=== PATIENT | male | born 1990 | race American Indian/Alaskan Native ===

== ENCOUNTER 2017-05-28 01:17 | Emergency (ER) | payer SELFPAY ==
[2017-05-28 01:47] VITALS: BP 119/69; PULSE 84; RESP 16; TEMP 98.6; O2SAT 99
[2017-05-28] MEDS ORDERED: cefTRIAXone (Rocephin) 250 mg Inj IM ONE (01:57)
--- NOTE | 2017-05-28 02:01 | ED PDOC ---
HPI: CCC, URI, Sore Throat Time Seen by Provider: 05/28/17 01:45 Chief Complaint (Nursing): Cough, Cold, Congestion Chief Complaint (Provider): cough History Per: Patient History/Exam Limitations: no limitations Onset/Duration Of Symptoms: Days (3) Current Symptoms Are (Timing): Still Present Additional History Per: Patient Additional Complaint(s): 27 y/o male presents with cold-symptoms x 3 days. Patient notes nasal congestion, sneezing, and cough. Denies fever, ear pain, nausea/vomiting, bodyaches, chest pain, shortness of breath, palpitations, changes in bowel movements, recent travel, sick contacts. Patient also notes penile discharge yesterday after having unprotected sex and is concerned for possible STD. Denies testicular pain/swelling, penile lesions. Past Medical History Reviewed: Historical Data, Nursing Documentation, Vital Signs Vital Signs: Last Vital Signs Temp 98.6 F 05/28/17 01:44 Pulse 84 05/28/17 01:44 Resp 16 05/28/17 01:44 BP 119/69 05/28/17 01:44 Pulse Ox 99 05/28/17 01:44 - Medical History PMH: No Chronic Diseases Denies: Chronic Kidney Disease - Family History Family History: States: Unknown Family Hx - Home Medications Home Medications: Ambulatory Orders Medication Instructions Recorded Fluticasone Nasal [Flonase] 1 actuation NS BID #1 bottle 05/28/17 Promethazine DM [Phenergan DM 5 ml PO Q6 PRN #200 ml 05/28/17 Syrup] - Allergies Allergies/Adverse Reactions: Allergies Allergy/AdvReac Type Severity Reaction Status Date / Time No Known Allergies Allergy Verified 03/25/16 23:56 Review of Systems ROS Statement: Except As Marked, All Systems Reviewed And Found Negative ENT: Positive for: Nose Congestion Respiratory: Positive for: Cough Genitourinary Male: Positive for: Penile Discharge Physical Exam - Reviewed Nursing Documentation Reviewed: Yes Vital Signs Reviewed: Yes - Physical Exam Appears: Positive for: Well, Non-toxic, No Acute Distress Head Exam: Positive for: ATRAUMATIC, NORMAL INSPECTION, NORMOCEPHALIC Skin: Positive for: Normal Color ENT: Positive for: Nasal Congestion Cardiovascular/Chest: Positive for: Regular Rate, Rhythm Respiratory: Positive for: Normal Breath Sounds Gastrointestinal/Abdominal: Positive for: Normal Exam Male Genital Exam: Positive for: normal genitalia, 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 Negative for: scrotum tenderness (R), scrotum tenderness (L), testicular tenderness (R), testicular tenderness (L), urethral discharge Extremity: Positive for: Normal ROM Neurologic/Psych: Positive for: Alert, Oriented - ECG O2 Sat by Pulse Oximetry: 99 - Progress ED Course And Treament: gc/chlamydia Patient would like to be treated prophylactically for STDs due to history of Chlamydia in past. Rocephin IM, Zithromax PO ordered. Patient advised if + all current partners will need to be treated. Rx flonase, promethazine DM provided. Follow up PMD 2-3 days. Return to ED for worsening/concerning symptoms. Disposition - Clinical Impression Clinical Impression: URI (upper respiratory infection), Concern about STD in male without diagnosis - Patient ED Disposition Is Patient to be Admitted: No Counseled Patient/Family Regarding: Studies Performed, Diagnosis, Need For Followup, Rx Given - Disposition Disposition: Routine/Home Disposition Time: 02:11 Condition: IMPROVED Prescriptions: Fluticasone Nasal [Flonase] 1 actuation NS BID #1 bottle Promethazine DM [Phenergan DM Syrup] 5 ml PO Q6 PRN #200 ml PRN Reason: Cough Instructions: Sexually Transmitted Diseases (ED), Safe Sex (ED), Upper Respiratory Infection (ED)
[2017-05-28] MEDS ORDERED: Sterile Water 10 ML IV ONE (02:03)
== END 2017-05-28 03:00 | disposition home or self-care (01) ==
LOC: H.ER 01:17
DX: J06.9 Acute upper respiratory infection, unspecified (principal)
CPT/HCPCS: 96372; 99281; J0696

== ENCOUNTER 2017-09-03 09:01 | Emergency (ER) | payer OTHER ==
[2017-09-03 09:19] VITALS: BMI 27.4
[2017-09-03 09:28] VITALS: TEMP 97
[2017-09-03] MEDS ORDERED: cefTRIAXone (Rocephin) 250 mg Inj IM ONE (09:53)
--- NOTE | 2017-09-03 09:53 | ED PDOC ---
HPI: Abdomen Time Seen by Provider: 09/03/17 09:51 Chief Complaint (Nursing): Abdominal Pain Chief Complaint (Provider): STD EXPOSURE/TESTICULAR PAIN History Per: Patient (27 Y/O MALE HERE FOR EVALUATION/TREATMENT OF STD. STATES HE FOUND OUT INTERMITTENT SEXUAL PARTNER WAS DIAGNOSED WITH CHLAMYDIA. NOTES TESTICULAR PAIN/ABDOMINAL PAIN YESTERDAY. DENIES ANY DYSURIA.) Past Medical History Reviewed: Historical Data, Nursing Documentation, Vital Signs Vital Signs: Last Vital Signs Temp 97 F L 09/03/17 09:22 Pulse 69 09/03/17 09:22 Resp 19 09/03/17 09:22 BP 142/80 09/03/17 09:22 Pulse Ox 99 09/03/17 09:53 - Medical History PMH: Denies: Chronic Kidney Disease - Family History Family History: States: Unknown Family Hx - Home Medications Home Medications: Ambulatory Orders Medication Instructions Recorded Fluticasone Nasal [Flonase] 1 actuation NS BID #1 bottle 05/28/17 Promethazine DM [Phenergan DM 5 ml PO Q6 PRN #200 ml 05/28/17 Syrup] Ibuprofen [Motrin] 600 mg PO Q8 PRN #15 tab 09/03/17 - Allergies Allergies/Adverse Reactions: Allergies Allergy/AdvReac Type Severity Reaction Status Date / Time No Known Allergies Allergy Verified 03/25/16 23:56 Review of Systems ROS Statement: Except As Marked, All Systems Reviewed And Found Negative Physical Exam - Reviewed Nursing Documentation Reviewed: Yes Vital Signs Reviewed: Yes - Physical Exam Appears: Positive for: Well, Non-toxic, No Acute Distress Head Exam: Positive for: ATRAUMATIC, NORMAL INSPECTION, NORMOCEPHALIC Skin: Positive for: Normal Color, Warm, DRY Eye Exam: Positive for: EOMI, Normal appearance, PERRL ENT: Positive for: Normal ENT Inspection Neck: Positive for: Normal, Painless ROM Cardiovascular/Chest: Positive for: Regular Rate, Rhythm Respiratory: Positive for: CNT, Normal Breath Sounds Gastrointestinal/Abdominal: Positive for: Normal Exam, Bowel Sounds, Soft Male Genital Exam: Positive for: normal genitalia. Negative for: scrotum tenderness (R), scrotum tenderness (L), urethral discharge Back: Positive for: Normal Inspection Extremity: Positive for: Normal ROM Neurologic/Psych: Positive for: Alert, Oriented - ECG O2 Sat by Pulse Oximetry: 99 - Progress ED Course And Treament: ROCEPHIN 250 MG IM ZITHROMAX 1 GM PO SCROTAL US: IMPRESSION: No evidence of testicular torsion. Left-sided varicocele. Small bilateral hydroceles. Disposition - Clinical Impression Clinical Impression: Varicocele, Hydrocele, Exposure to STD - Patient ED Disposition Is Patient to be Admitted: No - Disposition Referrals: Ronal Nava MD [Medical Doctor] - [facility] [Outside] Disposition: Routine/Home Disposition Time: 11:42 Condition: FAIR Additional Instructions: F/U WITH CLINIC FOR ADDITIONAL STD TESTING (HIV/SYPHILIS/ETC) AND F/U OF TESTING IN ED. Prescriptions: Ibuprofen [Motrin] 600 mg PO Q8 PRN #15 tab PRN Reason: Pain, Moderate (4-7) Instructions: Varicocele, Hydrocele, Hydrocele/Varicocele (DC), Screening for Sexually Transmitted Infections Forms: [facility] (Sinhala)
[2017-09-03 10:33] LABS: SQUAMOUS EPITHIAL < 1 /hpf (0-5); URINE BILIRUBIN NEGATIVE (NEGATIVE); URINE BLOOD NEGATIVE (NEGATIVE); URINE CLARITY CLOUDY (Clear); URINE COLOR YELLOW (YELLOW); URINE GLUCOSE (UA) NEG (Normal); URINE LEUKOCYTE ESTERASE NEG Leu/uL (Negative); URINE NITRATE NEGATIVE (NEGATIVE); URINE PROTEIN NEGATIVE (NEGATIVE); URINE UROBILINOGEN 0.2-1.0 mg/dL (0.2-1.0)
--- NOTE | 2017-09-03 11:35 | US ---
HISTORY: INTERMITTENT TESTICULAR PAIN TECHNIQUE: Realtime sonography through the scrotum with color and doppler flow. COMPARISON: None Available. FINDINGS: RIGHT TESTICLE: Measures 5.0 x 3.3 x 2.5 cm. Normal echotexture and flow. RIGHT EPIDIDYMIS: Epididymal head measures 0.7 x 1.2 x 1.4 cm. Grossly unremarkable appearance with normal flow. LEFT TESTICLE: Measures 4.4 x 4.0 x 2.4 cm. Normal echotexture and flow. LEFT EPIDIDYMIS: Epididymal head measures 1.3 x 1.1 x 0.9 cm. Grossly unremarkable appearance with normal flow. HYDROCELE: Small bilateral hydroceles. VARICOCELE: Left-sided varicocele. OTHER FINDINGS: None. IMPRESSION: No evidence of testicular torsion. Left-sided varicocele. Small bilateral hydroceles.
[2017-09-03 12:08] VITALS: BP 128/78; PULSE 78; RESP 18; O2SAT 98
== END 2017-09-03 12:08 | disposition home or self-care (01) ==
LOC: H.ER 09:01
DX: N43.3 Hydrocele, unspecified (principal); I86.1 Scrotal varices; Z20.2 Contact with and (suspected) exposure to infections with a predominantly sexual mode of transmission
CPT/HCPCS: 81003; 87086; 87491; 87591; 93975; 96372; 99281; J0696